=== PATIENT | male | born 1995 | race Two or more races ===

== ENCOUNTER 2022-07-28 20:19 | Emergency (ER) | payer OTHER, SELFPAY ==
--- NOTE | ~2022-07-28 | XR_ITS ---
EXAMINATION: XR CHEST CLINICAL INFORMATION: Cough and shortness of breath. COMPARISON: None TECHNIQUE: 2 views of the chest were obtained. FINDINGS: No significant abnormality is noted involving the heart, lungs, mediastinum, bony thorax or soft tissues. XR/XR chest 2V IMPRESSION: Unremarkable examination.
--- NOTE | 2022-07-28 20:41 | ED.URI ---
HPI - URI/Sore Throat General Chief Complaint: Upper Respiratory Symptoms <Leela Hood NP - Last Filed: 07/28/22 20:43> Stated Complaint: mucus, short of breath, coughing <Leela Hood NP - Last Filed: 07/28/22 20:43> Time Seen by Provider: 07/28/22 22:28 <Leela Hood NP - Last Filed: 07/28/22 20:43> Source: patient <Aby Valdez NP - Last Filed: 07/29/22 00:31> Mode of arrival: ambulatory <CARLOS Madera Last Filed: 07/29/22 00:31> Limitations: no limitations <Aby Valdez NP - Last Filed: 07/29/22 00:31> History of Present Illness HPI Narrative: 27-year-old male presents with upper respiratory symptoms for approximately 2 weeks, cough, sore throat, shortness of breath that is worse at night, dizziness and lightheadedness. Does not report any fevers or chills, is able to tolerate p.o. fluids. <Aby Valdez NP - Last Filed: 07/29/22 00:31> MD elicited complaint: cough, sore throat and nasal congestion <CARLOS Madera Last Filed: 07/29/22 00:31> Onset (ago): week(s) (2) <Aby Valdez NP - Last Filed: 07/29/22 00:31> Consistency: constant and progressively worsening <Aby Valdez NP - Last Filed: 07/29/22 00:31> Severity: moderate <Aby Valdez NP - Last Filed: 07/29/22 00:31> Pain scale (0-10): 5 <CARLOS Madera Last Filed: 07/29/22 00:31> Description of mucous: clear <CARLOS Madera Last Filed: 07/29/22 00:31> Able to tolerate fluids by mouth: Yes <CARLOS Madera Last Filed: 07/29/22 00:31> Exacerbating factors: exertion, speaking and deep breaths <Aby Valdez NP - Last Filed: 07/29/22 00:31> Relieving factors: nothing <Aby Valdez NP - Last Filed: 07/29/22 00:31> Associated symptoms: rhinorrhea, nasal congestion, sore throat, cough and shortness of breath <Aby Valdez NP - Last Filed: 07/29/22 00:31> Treatments prior to arrival: acetaminophen, ibuprofen and cold medicine <Aby Valdez NP - Last Filed: 07/29/22 00:31> Related Data Home Medications: Previous Rx's Medication Instructions Recorded benzonatate 100 mg capsule 100 mg PO TID PRN cough #20 caps 07/28/22 doxycycline monohydrate 100 mg 100 mg PO BID 7 days #14 caps 07/28/22 capsule <Leela Hood NP - Last Filed: 07/28/22 20:43> Allergies/Adverse Reactions: Allergies Allergy/AdvReac Type Severity Reaction Status Date / Time No Known Allergies Allergy Verified 07/28/22 20:42 <Leela Hood NP - Last Filed: 07/28/22 20:43> Review of Systems Review of Systems: Constitutional: No Fever, No Chills ENT/Mouth: No Ear Pain, No Hoarseness, phos sore throat Eyes: No Eye Pain, No Redness Cardiovascular: No Chest Pain, positive SOB Respiratory: Phos Cough, phos Dyspnea Gastrointestinal: No Nausea, No Vomiting, No Diarrhea, No abdominal Pain Genitourinary: No Dysuria, No Hematuria Musculoskeletal: positive chest wall pain, No Myalgias, No Joint Swelling Skin: No Skin lacerations, No rash Neuro: No Weakness, phos Dizziness, No Headache <Aby Valdez NP - Last Filed: 07/29/22 00:31> Yes all other systems are reviewed and are negative <Aby Valdez NP - Last Filed: 07/29/22 00:31> [facility] Past Medical History Attestation statement: The following information was validated with the patient. <CARLOS Madera Last Filed: 07/29/22 00:31> Source: old records reviewed <CARLOS Madera Last Filed: 07/29/22 00:31> Social History Social History: Social History Advance Directives: No Advance Directives Information Provided: No <Leela Hood NP - Last Filed: 07/28/22 20:43> Physical Exam Vital Signs: Vital Signs: Last Vital Signs Temp 98.6 F 07/28/22 20:46 Pulse 88 07/28/22 20:46 Resp 16 07/28/22 20:46 BP 138/86 07/28/22 20:46 Pulse Ox 97 07/28/22 20:46 O2 Del Method 07/28/22 20:46 BMI result Body Mass Index 26.6 <Leela Hood NP - Last Filed: 07/28/22 20:43> Vital Signs: Last Vital Signs Temp 98.6 F 07/28/22 20:46 Pulse 88 07/28/22 20:46 Resp 16 07/28/22 20:46 BP 138/86 07/28/22 20:46 Pulse Ox 97 07/28/22 20:46 O2 Del Method 07/28/22 20:46 BMI result Body Mass Index 26.6 <Aby Valdez NP - Last Filed: 07/29/22 00:31> Appearance: Alert. Oriented X3. No acute distress. Eyes: Pupils equal, round and reactive to light. ENT: Pharynx normal. Rhinorrhea noted. Neck: Normal inspection. Neck supple. CVS: Normal heart rate and rhythm. Pulses normal. Respiratory: No respiratory distress. Expiratory wheezing the midsternal upper lobes consistent with bronchitis. Abdomen: Soft and nontender. Skin: Skin warm and dry. Normal skin color. Normal skin turgor. Extremities: No lower extremity edema. Gait well balanced well coordinated. Neuro: No motor deficit. No sensory deficit. Cranial nerves 2-12 intact. <Aby Valdez NP - Last Filed: 07/29/22 00:31> Course Course Course Narrative: This is a rapid medical exam. Deferred additional HPI, ROS, PE to primary provider. 27 yo male with no known medical history here with sore throat, cough, shortness of breath x 2 weeks. Initially had fever but this is resolved. Did home COVID test which was negative. Will obtain testing for flu, covid, rsv, strep and obtain CXR. VSS <Leela Hood NP - Last Filed: 07/28/22 20:43> This is a rapid medical exam. Deferred additional HPI, ROS, PE to primary provider. 27 yo male with no known medical history here with sore throat, cough, shortness of breath x 2 weeks. Initially had fever but this is resolved. Did home COVID test which was negative. Will obtain testing for flu, covid, rsv, strep and obtain CXR. VSS 27-year-old male presents for upper respiratory symptoms for approximately 2 weeks. COVID influenza RSV ordered while patient was in the emergency department waiting room. Patient is afebrile, appears nontoxic, even unlabored respirations, speaking in complete sentences. No vertebral tenderness or step-offs. No nuchal rigidity. No mastoid tenderness. No anterior some posterior cervical lymphadenopathy. Pharynx normal. Positive rhinorrhea. Positive sinus tenderness to facial palpation. Has some scant scattered expiratory wheezes closer to the midline most likely consistent with bronchitis. Chest x-ray is negative for acute findings requiring emergent intervention Considering patient has had these symptoms for approximately 2 weeks, has worsening shortness of breath and increased mucus production, will give doxycycline for suspected bronchitis versus pneumonia versus sinusitis. Will also provide supportive measures Tessalon Perles. Encourage patient to continue with Tylenol Motrin. Patient verbalized understanding of and agrees plan of care discharge home. Verbalized understanding signs symptoms indicating need for emergent intervention. <Aby Valdez NP - Last Filed: 07/29/22 00:31> Medications Administered Discontinued Medications Generic Name Dose Route Start Last Admin Trade Name Freq PRN Reason Stop Dose Admin Benzonatate 100 mg 07/28/22 22:33 07/28/22 22:58 Benzonatate 100 Mg Capsule PO 07/28/22 22:34 100 mg ONCE ONE Administration Doxycycline Monohydrate 100 mg 07/28/22 22:33 07/28/22 22:58 Doxycycline Monohydrate 100 Mg Capsule PO 07/28/22 22:34 100 mg ONCE ONE Administration <Leela Hood NP - Last Filed: 07/28/22 20:43> Medications Administered Discontinued Medications Generic Name Dose Route Start Last Admin Trade Name Freq PRN Reason Stop Dose Admin Benzonatate 100 mg 07/28/22 22:33 07/28/22 22:58 Benzonatate 100 Mg Capsule PO 07/28/22 22:34 100 mg ONCE ONE Administration Doxycycline Monohydrate 100 mg 07/28/22 22:33 07/28/22 22:58 Doxycycline Monohydrate 100 Mg Capsule PO 07/28/22 22:34 100 mg ONCE ONE Administration <Aby Valdez NP - Last Filed: 07/29/22 00:31> Medical Decision Making Differential Diagnosis Differential Diagnoses: The differential diagnosis associated with the presentation includes <Aby Valdez NP - Last Filed: 07/29/22 00:31> Influenza, bronchitis, sinusitis, strep, costochondritis, bronchiolitis <Aby Valdez NP - Last Filed: 07/29/22 00:31> Lab Data MDM Lab Attestation statement: I reviewed the patient's lab results. <Aby Valdez NP - Last Filed: 07/29/22 00:31> Labs: Lab Results 07/28/22 07/28/22 Range/Units 21:02 21:02 Influenza Type A (PCR) NEGATIVE (Negative) Influenza Type B (PCR) NEGATIVE (Negative) RSV RNA Qual (PCR) NEGATIVE (Negative) SARS-CoV-2 RNA (RT-PCR) NEGATIVE (Negative) S. pyogenes GrpA BOBBY Negative (Negative) <Leela Hood NP - Last Filed: 07/28/22 20:43> Lab Results 07/28/22 07/28/22 Range/Units 21:02 21:02 Influenza Type A (PCR) NEGATIVE (Negative) Influenza Type B (PCR) NEGATIVE (Negative) RSV RNA Qual (PCR) NEGATIVE (Negative) SARS-CoV-2 RNA (RT-PCR) NEGATIVE (Negative) S. pyogenes GrpA BOBBY Negative (Negative) <Aby Valdez NP - Last Filed: 07/29/22 00:31> Independent Interpretation I performed an independent interpretation of an: Plain X-Ray <Aby Valdez NP - Last Filed: 07/29/22 00:31> Radiology Impression Discussion of test interpretation with radiology: I have reviewed the radiologist's reading. <Aby Valdez NP - Last Filed: 07/29/22 00:31> Radiologist Impression: EXAMINATION: XR CHEST CLINICAL INFORMATION: Cough and shortness of breath. COMPARISON: None TECHNIQUE: 2 views of the chest were obtained. FINDINGS: No significant abnormality is noted involving the heart, lungs, mediastinum, bony thorax or soft tissues. XR/XR chest 2V IMPRESSION: Unremarkable examination. <Aby Valdez NP - Last Filed: 07/29/22 00:31> External Record Review Patient has no prior records at this facility <Aby Valdez NP - Last Filed: 07/29/22 00:31> Prescription Management I considered prescription management with: Antibiotic <Aby Valdez NP - Last Filed: 07/29/22 00:31> Discharge Plan Discharge Clinical Impression: Upper respiratory infection <Leela Hood NP - Last Filed: 07/28/22 20:43> Patient Disposition: Home, Self-Care <Leela Hood NP - Last Filed: 07/28/22 20:43> Instructions: Acute Bronchitis (ED) <Leela Hood NP - Last Filed: 07/28/22 20:43> Additional Instructions: Your evaluate for upper respiratory symptoms. Your symptoms are consistent with bronchitis. Please take doxycycline 100 mg twice a day for the next 7 days. Take Tessalon Perles 100 mg every 8 hours as needed for cough. Drink plenty of fluids. Alternate Tylenol 650 mg every 6 hours and Motrin 600 mg every 6 hours as needed for pain and fever management. Consider taking these medications 3 hours apart so you have pain and fever management every 3 hours. Write down what time you take these medications to prevent accidental overdose. Motrin is the same medication as Advil and ibuprofen. Tylenol is the same medication as acetaminophen. Thank you for choosing this emergency department for evaluation. Please follow-up with primary care physician as needed. Return to the emergency department for any new, concerning, or worsening symptoms. <Leela Hood NP - Last Filed: 07/28/22 20:43> Prescriptions: New doxycycline monohydrate 100 mg capsule 100 mg PO BID 7 Days Qty: 14 0RF benzonatate 100 mg capsule 100 mg PO TID PRN (Reason: cough) Qty: 20 0RF <Leela Hood NP - Last Filed: 07/28/22 20:43> Stand Alone Forms: Work/School Release <Leela Hood NP - Last Filed: 07/28/22 20:43> Interventions: ED Discharge Assessment Last Done: 07/28/22 23:00 <Leela Hood NP - Last Filed: 07/28/22 20:43> Discharge Date/Time: 07/28/22 23:01 <Leela Hood NP - Last Filed: 07/28/22 20:43>
[2022-07-28 20:46] VITALS: BP 138/86; PULSE 88; RESP 16; TEMP 37; O2SAT 97; BMI 26.6
[2022-07-28 21:25] LABS: IDNOW Serial# 6674DD1D; Strep A Nucleic Acid Negative (Negative)
[2022-07-28 21:51] LABS: Influenza A PCR NEGATIVE (Negative); Influenza B PCR NEGATIVE (Negative); Resp Syncy Virus RNA Qual PCR NEGATIVE (Negative); SARS COV2 PCR INHOUSE NEGATIVE (Negative)
[2022-07-28] MEDS: Doxycycline Monohydrate 100 MG CAPSULE PO (22:58)
[2022-07-28] MEDS: Benzonatate 100 MG CAPSULE PO (22:58)
== END 2022-07-28 23:01 | disposition home or self-care (01) ==
PROVIDERS: Nurse Practitioner Family; Emergency Provider Emergency Medicine Emergency Medical Services
DX: J06.9 Acute upper respiratory infection, unspecified (principal); R05.9 Cough, unspecified; R06.02 Shortness of breath; Z20.822 Contact with and (suspected) exposure to COVID-19; Z20.828 Contact with and (suspected) exposure to other viral communicable diseases
CPT/HCPCS: 0241U; 71046; 87651; 99282; 99283